=== PATIENT | female | born 1950 | race Caucasian/White ===

== ENCOUNTER 2018-11-26 08:12 | Observation (INO) ==
[~2018-11-26 08:12] MED LIST: CEFAZOLIN 1000MG 1,000 MG/7.5 ML SYR IV SCH; CLINDAMYCIN 600 MG/54 ML BAG IV SCH; LR 15ML/HR IV SCH
[2018-11-26] MEDS ORDERED: CEFAZOLIN 1,000 MG/7.5 ML IV PUSH IV ONE (09:05)
[2018-11-26] MEDS ORDERED: BUPIVACAINE 0.25% 30 ML VIAL ONE (09:56)
[2018-11-26] MEDS ORDERED: LIDOCAINE HCL 1% 20 ML VIAL ONE (09:56)
[2018-11-26] MEDS ORDERED: BACITRACIN INJ 50,000 UNIT VIAL ONE (09:56)
--- NOTE | 2018-11-26 09:56 | History & Physical Bridge Note ---
Date of Service November 26, 2018 History & Physical Bridge Note I have examined the patient, reviewed the History & Physical and in the interval since the performance of the History & Physical I have noted the following changes of clinical significance: no changes noted
--- NOTE | 2018-11-26 09:57 | Pre Anesthesia Assessment ---
Date of Service November 26, 2018 Pre Sedation Assessment Vital Signs Temp Pulse Resp BP Pulse Ox 11/26/18 08:40 36.4 C L 54 L 16 167/80 H 95 Cardiovascular + bradycardic Respiratory normal respiratory effort, lungs clear to auscultation Pre-Sedation Airway Assessment Smoking Status: Never smoker Hx Sleep Apnea: No Short, Thick Neck: No Thyromental Distance: < 3.5 Finger Breadths Oral Cavity: + WNL Mallampati Class: II ASA: ASA3 NPO Status Date of Last Intake of Fluids: 11/25/18 Date of Last Intake of Solid Food: 11/25/18 Procedure Planning Contraindications for Sedation: none Current Medications Reviewed: Yes Notes The planned sedation has been discussed with the patient. Informed Consent was obtained. I have identified the patient, determined the appropriateness of sedation and have assessed the patient immediately prior to the procedure. All medicine(s) and interventions are by my order.
[2018-11-26] MEDS ORDERED: MIDAZOLAM HCL 5 MG/ML 1 ML VIAL ONE (10:16)
[2018-11-26] MEDS ORDERED: fentaNYL citrate 100 MCG/2 ML VIAL ONE (10:16)
[2018-11-26] MEDS ORDERED: OXYCODONE/ACETAMINOPHEN 5mg/325mg TAB PO PRN (11:33)
[2018-11-26] MEDS ORDERED: ACETAMINOPHEN 325 MG TAB PO PRN (11:33)
--- NOTE | 2018-11-26 11:33 | Post Anesthesia Assessment ---
Date of Service November 26, 2018 Post Sedation Assessment Vital Signs Temp Pulse Resp BP Pulse Ox 11/26/18 08:40 36.4 C L 54 L 16 167/80 H 95 Recovery Score Activity: Moves 4 extremities Respiration: Deep Breath/Cough Circulation: +/-20% PreAnes Value Consciousness: Fully Awake Oxygen Saturation: > 92% On Room Air Discharge Sedation Level of Care: Fast Track Phase II Post Sedation Plan On clinical assessment, the patient appears to have tolerated the sedation without complications. Patient is recovering as anticipated. Patient will continue to be monitored by nursing and may be discharged when sedation discharge criteria are met per below protocol. Upon Completions of procedure and additional 15 minutes continue every 5 minute vital signs and the P.A.R. score; then discharge to a Phase I or Fast Track to Phase II per the following guidelines: * Discharge Patient to appropriate Phase II area if PAR is 8 or greater or return to pre- procedure baseline. The post - procedure orders will be as directed. * If PAR score is less than 8 or not return to pre-procedure baseline then patient will follow Phase I monitoring till PAR is reached for Phase II. The Phase I may be done in procedure room or may call to secure a Phase I area. * If naloxone or flumazenil are used for reversal, hold in Phase I for continued monitoring from when last reversal dose was given for a minimum of 60 minutes or longer pending the nurse and/or physician discretion of patient condition before discharge to Phase II. Please call the Sedation Physician to re-evaluate and complete post-note for discharge to Phase II area. Do NOT discharge from procedure sedation or Phase 1 until post- sedation evaluation note is complete by procedure /sedation MD Sedation Discharge Instructions to be given to the patient at discharge to home.
--- NOTE | 2018-11-26 11:33 | Operative Report ---
Post Operative Report Pre & Post Diagnosis sss Operation Date: 11/26/18 10:00 <No data on this case meets the specified criteria> Procedure Operation Date: 11/26/18 10:00 Actual Procedures p Pacer with A/V Leads (Dual) - Jayda Tripp DO Surgeon Jayda Tripp, DO Sanitation Inspector none Estimated Blood Loss 10 Findings Consistent with Post-Op Diagnosis Specimens none Description of Procedure see official report I attest to the content of the Intraoperative Record and any orders documented therein. Any exceptions are noted below.
[2018-11-26] MEDS ORDERED: MELOXICAM 7.5 MG TAB PO PRN (11:36)
--- NOTE | 2018-11-26 11:52 | Discharge Summary ---
Date of Service November 26, 2018 Admission HPI Per Admitting Provider pt with generalized fatigue and SSS for ppm Admission Exam Per Admitting Provider aaox3, NAD NC/AT, EOMI Supple No JVD bradycardia S1/S2, No murmur CTA b/l no w/r/r soft nt/nd no LE edema b/l skin intact no focal deficits Principal Diagnosis SSS s/p dual chamber pacemaker Discharge Exam aaox3, NAD NC/AT, EOMI Supple No JVD Nrl S1/S2, No murmur CTA b/l no w/r/r soft nt/nd no LE edema b/l skin intact no focal deficits left pectoral incision intact, no hematoma mild ecchymosis ENMT Mallampati Class: II Respiratory normal respiratory effort, lungs clear to auscultation Cardiovascular Rate/Rhythm: + bradycardic Discharge Data Allergies Allergy/AdvReac Type Severity Reaction Status Date / Time Sulfa (Sulfonamide Allergy Mild Verified 11/26/18 08:34 Antibiotics) Procedures Performed Operation Date: 11/26/18 10:00 Actual Procedures p Pacer with A/V Leads (Dual) - Jayda Tripp DO Ordered Studies 11/26/18 06:45 EP Lab Images for PACS ONCE Hospital Course (1) SSS (sick sinus syndrome): pt admitted for elective ppm due to TBS. Underwent procedure without any complications monitored overnight started on toprol and discharged home. Total Time Total Time Spent Total Time Spent (In Minutes): 30 Total Time Includes: Examination of the Patient, Discharge Planning, Medication Reconciliation and Other Discharge Plan Discharge Items Patient Disposition: Home - Self-Care Reason For Visit: PACEMAKER INSERTION Discharge Diagnosis: sss s/p dual chamber ppm Condition: Good Discharge Goals: Improve function Activity: As commented below Activity Comment: do not lift the left elbow over the left shoulder for 1 month Lifting: No more than 10 pounds Lifting Comment: do not lift more than 10 pounds with the left arm for 2 weeks Bathing: Keep incision dry Bathing Comment: can shower thur 11/28 let water run over the incision do not scrub it Sexual Activity: After two weeks Driving/Machine Use: Resume 1 day after discharge Non-emergency contact: Licensing Director Call non-emergency contact if: you have any medication questions Follow-up/Referrals: Virgen Boyd DO [Primary Care Provider] - Diet: Heart Healthy Addtl Provider Instructions: Device and wound check at [facility], [place] next wednesday 12/06 if you notice any swelling at the site call Dr. Tripp's office immediately Prescriptions: New metoprolol tartrate 25 mg Tablet 25 mg PO BID Qty: 60 RF: 0 Continued meloxicam 7.5 mg tablet 7.5 mg PO DAILY PRN (Reason: Pain) RF: 0 lisinopril 2.5 mg tablet 2.5 mg PO DAILY RF: 0 omega 4-mkk-sfn-fish oil [Fish Oil] 1,000 mg (120 mg-180 mg) Capsule 1 cap PO QAM RF: 0 sertraline 50 mg Tablet 50 mg PO DAILY RF: 0 magnesium citrate 100 mg Tablet 100 mg PO DAILY RF: 0 Discontinued metoprolol tartrate 25 mg tablet 12.5 mg PO BID RF: 0 Stand-Alone Forms: [facility]/Other Patient Handouts: Implantation Pacemaker Dc Discharge Orders: Discharge Order (Routine); Ordered 11/27/18 Ordered By: Jayda Tripp Admission Data Admit Date/Time: 11/26/18 11:02 Attending Provider: Jayda Tripp Admit Provider: Jayda Tripp Primary Care Provider: Virgen Boyd Service: Telemetry Other Interventions: Discharge Summary Assessment (RN) Last Done: 11/27/18 09:38 DC Date/Time DO NOT enter until pt leaves facility: 11/27/18 10:45
[2018-11-26] MEDS: METOPROLOL TARTRATE 25 MG TAB PO SCH (20:01)
--- NOTE | 2018-11-27 06:30 | XRay Report ---
XR chest 2V routine HISTORY: 68 years-old Female post implant status post placement of a left subclavian pacer COMPARISON: Chest radiograph 04/14/2018 TECHNIQUE: PA and lateral views of the chest FINDINGS: Cardiac mediastinal and hilar silhouettes are within normal limits. Status post placement of a left s ubclavian pacer with leads overlying the expected locations of the right atrium and right ventricle. No postprocedural pneumothorax. Hyperinflated lungs with suggested emphysema. No overt pulmonary osmar a, focal airspace consolidation or pleural effusion. IMPRESSION: Status post placement of a left subclavian pacer without postprocedural pneumothorax iden tified. The above report was generated using voice recognition software. It may contain grammatical, syntax o r spelling errors. Electronically signed by: Ej Granados M.D. 11/27/2018 6:29 AM
[2018-11-27] MEDS: METOPROLOL TARTRATE 25 MG TAB PO SCH (08:21)
[2018-11-27] MEDS ORDERED: LISINOPRIL 2.5 MG TAB PO SCH (09:00)
[2018-11-27] MEDS ORDERED: OMEGA-3 (PURIFIED FISH OIL) 1 GM CAP PO SCH (09:00)
[2018-11-27] MEDS ORDERED: SERTRALINE HCL 50 MG TABLET PO SCH (09:00)
[2018-11-27] MEDS ORDERED: NON-FORMULARY MEDICATION (Magnesium Citrate 100 MG) PO SCH (09:00)
--- NOTE | 2018-12-11 00:20 | Operative Report ---
DATE OF OPERATION: 11/26/2018 DATE OF PROCEDURE: 11/26/2018 PREOPERATIVE DIAGNOSIS: Sick sinus syndrome. POSTOPERATIVE DIAGNOSIS: Sick sinus syndrome. PROCEDURE: Dual chamber responsive permanent pacemaker under fluoroscopic guidance. SURGEON: Jayda Tripp DO. DIRECTOR MBA: None. ANESTHESIA: Monitored conscious sedation administered under my supervision by Ludmila Coelho. Start time 10:17, end time 11:28, a total of 5 mg of Versed, 100 mcg fentanyl. INTRAVENOUS FLUIDS: 36 mL. ANTIBIOTICS: 1 gram Ancef. BLOOD LOSS: 20 mL. URINE OUTPUT: Not applicable. SPECIMENS: None. FINDINGS: See below. DRAINS: None. INDICATIONS: This is a 68-year-old female with past medical history of paroxysmal atrial tachycardia on a Zio patch on 04/2018 as well as some intermittent junctional rhythms at Zio patch. She has minimal coronary artery disease by catheterization in 04/2018, mild mitral regurgitation, hypertension, hyperlipidemia. Due to the evidence of sick sinus syndrome, she is recommended a dual chamber pacemaker. CONSENT: Consent was obtained prior to the patient going into the electrophysiology lab. The patient was informed of risks, benefits, alternatives of the procedure. Risks include but not limited to sudden cardiac , cardiac arrhythmias, cerebrovascular accident, myocardial infarction, injury to the blood vessels, chamber of the heart, lungs, bleeding and infection. The patient understood these risks and agreed to the procedure as planned. Informed consent was obtained. DESCRIPTION OF THE PROCEDURE: A 10 mL of 1% lidocaine, bupivacaine mixture were given in the left deltopectoral groove. Incision was made in left deltopectoral groove. Blunt dissection was performed down to identify cephalic vein. Cephalic vein was identified and isolated using 0 silk ties. The vein was nicked with an 11 blade. A guidewire was inserted without any resistance. The blunt dissection was performed down to identify the cephalic vein. Cephalic vein was identified and isolated using 0 silk ties. The vein was nicked with an 11 blade and a guidewire was inserted without any resistance. An 8-Qatari sheath was inserted over the guidewire without any resistance. Guidewire and dilator removed. The dilator was removed and a second sheath was inserted over the retained guidewire without any resistance to allow for retained venous access. Then, the sheath was removed, flushed, dilator reinserted over it and reinserted over the guidewire. The guidewire and dilator removed and the right ventricular lead was advanced into right ventricular apex under fluoroscopic guidance. There was adequate pacing and sensing thresholds and no diaphragmatic stimulation in high output pacing. The 8-Qatari sheath was peeled away and lead was fixated to pectoralis muscle using 0 silk suture. An additional second 8-Qatari sheath was inserted over the retained guidewire without any resistance. Guidewire and dilator were removed. Then, the right atrial lead was advanced into right atrium and positioned into atrial appendage under fluoroscopic guidance. There was adequate pacing and sensing thresholds and no diaphragmatic stimulation in high output pacing. The 8-Qatari sheath was peeled away and lead was fixated to pectoralis muscle using 0 silk suture. There was some backbleeding at the cephalic access site, so a pursestring using a 2-[address] needle was performed to stop that. Then using blunt dissection over the pectoralis muscle within the pectoralis fascia, pacemaker pocket was created. The pocket was flushed with copious amounts of bacitracin saline wash and inspected for hemostasis. The pulse generator was then attached to the leads making sure that the pins were in appropriate position, passed set the set screw and set screws were all tightened. The pulse generator was then placed in the pocket, making sure that the leads were lying flat beneath the device. A stay stitch was used to secure this pectoralis muscle. The incision was then closed in 3-layer fashion with 2-0 Vicryl interrupted suture followed by 3-0 Vicryl interrupted suture followed by 4-0 Monocryl running stitch. Dermabond was applied. EQUIPMENT: 1. Generator is a [employer] XT DR SAMIRA Dillard [id number], serial number [id number]. 2. Right atrial lead Medtronic 5076-52 cm, serial number [id number]. 3. Right ventricular lead is a Medtronic 5076-58 cm, serial number [id number]. INTRAOPERATIVE TESTIN. P waves 1.1 millivolts, impedance 855 ohms, threshold 0.8 volts at 0.4 milliamps. 2. Right ventricular lead: R-wave 3.8 millivolts, impedance 570 ohms, threshold 0.4 volts at 0.4 milliamps. MEASUREMENTS THROUGH DEVICE: 1. Right atrial lead: P waves 1.1 millivolts, impedance 931 ohms, threshold 0.75 volts at 0.4 milliseconds. 2. Right ventricular lead: R-wave 2.8 millivolts, unipolar R waves are 5.4 millivolts, impedance 570 ohms, threshold 0.5 volts at 0.4 milliseconds. FINAL PARAMETERS: MVP-R 60/130. Right atrial amplitude is 3.5 volts, pulse width 0.4 milliseconds, sensitivity 0.3 millivolts. Right ventricular amplitude 3.5 volts, pulse width 0.4 milliseconds, sensitivity 1.2 millivolts. IMPRESSION: Successful implantation of a dual chamber rate responsive permanent pacemaker under fluoroscopic guidance secondary to sick sinus syndrome. PLAN: Monitor patient overnight, 12-lead ECG, chest x-ray. She is not allowed to lift the left elbow or left shoulder for 1 month. She cannot lift more than 10 pounds with the left arm for 2 weeks. She can shower in 2 days, let water run over the incision, do not scrub it. She should follow up in our [facility] office for device and wound check in 1 week's time. I attest to the content of the Intraoperative Record and any orders documented therein. Any exception s are noted below.
== END 2018-11-27 10:45 | disposition home or self-care (01) ==
LOC: 2E 08:12 → ASU 08:12